=== PATIENT | female | born 1995 | race Caucasian/White ===

== ENCOUNTER 2022-01-04 12:23 | Outpatient (CLI) | payer OTHER, SELFPAY ==
[2022-01-04 13:40] LABS: Beta HCG Quantitative < 2.39 mIU/ML
[2022-01-06 18:59] LABS: Progesterone 9.3 ng/mL (***)
== END 2022-01-04 12:24 | disposition home or self-care (01) ==
LOC: ANHLAB 12:27
PROVIDERS: PCP Family Medicine; Visit Provider Obstetrics & Gynecology
DX: Z32.01 Encounter for pregnancy test, result positive (principal)
CPT/HCPCS: 36415; 84144; 84702